=== PATIENT | male | born 1995 | race Caucasian/White ===

== ENCOUNTER 2017-02-16 21:49 | Emergency (ER) | payer OTHER ==
[~2017-02-16] VITALS: Ht 190.5 cm; Wt 72.6 kg
[2017-02-16 22:00] VITALS: BP 120/75
[2017-02-17] MEDS ORDERED: IBUPROFEN 600 MG TAB PO ONE (01:00)
== END 2017-02-17 01:20 | disposition home or self-care (01) ==
LOC: ER 21:52
DX: S60.212A Contusion of left wrist, initial encounter (principal); W22.8XXA Striking against or struck by other objects, initial encounter; Y93.89 Activity, other specified; Y92.89 Other specified places as the place of occurrence of the external cause; Y99.8 Other external cause status
CPT/HCPCS: 73100